=== PATIENT | male | born 1955 | race Caucasian/White ===

== ENCOUNTER 2021-08-11 08:15 | Emergency (ER) | payer OTHER, MEDICAID ==
[~2021-08-11] VITALS: Ht 180.3 cm; Wt 74.0 kg
[~2021-08-11 08:15] MED LIST: POTA20TA82 MT
[2021-08-11] MEDS ORDERED: ACETAMINOPHEN 325MG TABLET PO ONE (08:30)
[2021-08-11] MEDS ORDERED: HYDROCODONE/ACETAMINOPHEN 5/325MG TABLET PO ONE (09:00)
[2021-08-11] MEDS ORDERED: LIDOCAINE 5% PATCH TOP SCH (09:00)
[2021-08-11] MEDS ORDERED: DEXAMETHASONE 4MG TABLET PO ONE (09:00)
[2021-08-11] MEDS ORDERED: ACET-2708 MT (09:19)
[2021-08-11] MEDS ORDERED: BACL-141 MT (09:19)
[2021-08-11] MEDS ORDERED: LIDO700A15 TP (09:19)
[2021-08-11 10:14] VITALS: BP 120/86
== END 2021-08-11 10:57 | disposition home or self-care (01) ==
LOC: ER 08:15
DX: M76.01 Gluteal tendinitis, right hip (principal); Z13.9 Encounter for screening, unspecified
CPT/HCPCS: 99284; J8540

== ENCOUNTER 2023-05-08 15:40 | Inpatient (IN) | payer MEDICARE, MEDICAID ==
[~2023-05-08] VITALS: Ht 180.3 cm; Wt 73.5 kg
[2023-05-08 15:40] VITALS: BP 147/66; PULSE 52; RESP 18; TEMP 97.3
[~2023-05-08 15:40] MED LIST changes: +ACET-2708 MT; +BACL-141 MT; +LIDO700A15 TP; +POTA-204 MT; -POTA20TA82 MT
[2023-05-08 16:30] VITALS: BP 147/66; PULSE 52; RESP 18; TEMP 97.3
[2023-05-08] MEDS ORDERED: ACETAMINOPHEN 325MG TABLET PO PRN (17:30)
[2023-05-08] MEDS ORDERED: TRAMADOL 50MG TABLET PO PRN (17:30)
[2023-05-08 20:00] VITALS: BP 160/70; PULSE 59; RESP 17; TEMP 97.7
[2023-05-08] MEDS: CLONIDINE 0.1MG TABLET PO PRN (22:38)
[2023-05-09 07:25] LABS: HEMATOCRIT. 30.4 % (42.0-52.0); HEMOGLOBIN. 10.4 g/dL (14.0-18.0); MEAN CORPUSCULAR HEMOGLOBIN 33.8 pg (28.0-32.0); MEAN CORPUSCULAR HGB CONC 34.4 g/dL (31.0-37.0); MEAN CORPUSCULAR VOLUME 98.3 fL (80.0-94.0); PLATELET 226 x1000/uL (130-400); RED BLOOD CELL COUNT 3.09 mill/uL (4.7-6.1); RED CELL DISTRIBUTION WIDTH 15.3 % (11.6-14.6); WHITE BLOOD COUNT 10.6 x1000/uL (4.5-11.0)
[2023-05-09 07:41] LABS: DIFFERENTIAL COMMENT 1
[2023-05-09 08:00] VITALS: BP 156/76; PULSE 45; RESP 18; TEMP 97
[2023-05-09] MEDS: ENOXAPARIN 40MG/0.4ML SYR SUBCUT SCH (09:38)
[2023-05-09] MEDS: HYDROCODONE/ACETAMINOPHEN 5/325MG TABLET PO PRN (13:49)
[2023-05-09] MEDS ORDERED: NALOXONE HCL 0.4MG/ML VIAL IV PRN (16:45)
[2023-05-09 17:11] LABS: PLATELET ESTIMATE NORMAL
[2023-05-09 19:36] LABS: CHLORIDE 109 mEq/L (98-107); INDEX HEMOLYSI 1 (1-3); INDEX ICTERIC 1 (1-4); INDEX LIPEMIC 1 (1-3); POTASSIUM 3.8 mEq/L (3.5-5.1); SODIUM 142 mEq/L (136-145)
[2023-05-09 20:00] VITALS: BP 145/62; PULSE 55; RESP 18; TEMP 96.8
[2023-05-09 23:15] LABS: CALCIUM 7.9 mg/dL (8.5-10.1)
[2023-05-09 23:16] LABS: ALANINE AMINOTRANSFERASE 28 IU/L (13-61); ALBUMIN 2.6 g/dL (3.4-5.0); ASPARTATE AMINOTRANSFERASE 37 IU/L (15-37); BILIRUBIN TOTAL 0.9 mg/dL (0.1-1.0); CARBON DIOXIDE 22 mEq/L (21-32); CREATININE 0.7 mg/dL (0.6-1.3); GLUCOSE 82 mg/dL (70-105); PROTEIN TOTAL 5.6 g/dL (6.0-8.3); UREA NITROGEN BLOOD 19 mg/dL (7-21)
[2023-05-10 07:01] LABS: BASOPHILS % 0.1 % (0.0-2.0); EOSINOPHILS % 1.8 % (0.0-5.0); HEMATOCRIT. 36.1 % (42.0-52.0); HEMOGLOBIN. 12.6 g/dL (14.0-18.0); LYMPHOCYTES % 7.6 % (20.0-50.0); MEAN CORPUSCULAR HEMOGLOBIN 33.7 pg (28.0-32.0); MEAN CORPUSCULAR HGB CONC 34.8 g/dL (31.0-37.0); MEAN CORPUSCULAR VOLUME 96.8 fL (80.0-94.0); MONOCYTES % 5.9 % (2.0-8.0); NEUTROPHILS % 84.6 % (40.0-76.0); PLATELET 295 x1000/uL (130-400); RED BLOOD CELL COUNT 3.73 mill/uL (4.7-6.1); WHITE BLOOD COUNT 10.9 x1000/uL (4.5-11.0)
[2023-05-10 08:00] VITALS: BP 160/83; PULSE 50; RESP 18; TEMP 97
[2023-05-10 08:13] LABS: FERRITIN 189 ng/mL (22-322)
[2023-05-10] MEDS: ENOXAPARIN 40MG/0.4ML SYR SUBCUT SCH (08:33)
[2023-05-10 08:46] LABS: CHLORIDE 107 mEq/L (98-107); INDEX HEMOLYSI 1 (1-3); INDEX ICTERIC 1 (1-4); INDEX LIPEMIC 1 (1-3); POTASSIUM 3.9 mEq/L (3.5-5.1); SODIUM 138 mEq/L (136-145)
[2023-05-10 09:09] LABS: ALANINE AMINOTRANSFERASE 34 IU/L (13-61); ALBUMIN 3.1 g/dL (3.4-5.0); ASPARTATE AMINOTRANSFERASE 30 IU/L (15-37); BILIRUBIN TOTAL 1.7 mg/dL (0.1-1.0); CALCIUM 8.3 mg/dL (8.5-10.1); CARBON DIOXIDE 24 mEq/L (21-32); CREATININE 0.6 mg/dL (0.6-1.3); GLUCOSE 96 mg/dL (70-105); IRON 64 ug/dL (50-175); PROTEIN TOTAL 6.8 g/dL (6.0-8.3); TOTAL IRON BINDING CAPACITY 285 ug/dL (250-450); UREA NITROGEN BLOOD 13 mg/dL (7-21)
[2023-05-10 09:17] LABS: INDEX HEMOLYSI 1 (1-3)
[2023-05-10 09:49] LABS: FOLIC ACID (FOLATE) SERUM >20 ng/mL ng/mL (>5.38); VITAMIN B12 SERUM 882 pg/mL (211-911)
[2023-05-10] MEDS: HYDROCODONE/ACETAMINOPHEN 5/325MG TABLET PO PRN (09:54)
[2023-05-10] MEDS: HYDROCODONE/ACETAMINOPHEN 10/325MG TABLET PO PRN (14:18)
[2023-05-10] MEDS: THIAMINE HCL 100MG TABLET PO SCH (14:18)
[2023-05-10] MEDS: FOLIC ACID 1MG TABLET PO SCH (14:18)
[2023-05-10 20:00] VITALS: BP 138/81; PULSE 62; RESP 17; TEMP 95.5
[2023-05-11 08:00] VITALS: BP 172/71; PULSE 64; RESP 18; TEMP 97.5
[2023-05-11] MEDS: ENOXAPARIN 40MG/0.4ML SYR SUBCUT SCH (09:04)
[2023-05-11] MEDS: HYDROCODONE/ACETAMINOPHEN 10/325MG TABLET PO PRN (09:04)
[2023-05-11] MEDS: THIAMINE HCL 100MG TABLET PO SCH (09:04)
[2023-05-11] MEDS: FOLIC ACID 1MG TABLET PO SCH (09:04)
[2023-05-11] MEDS ORDERED: ERGOCALCIFEROL 50000UNITS CAPSULE PO SCH (11:02)
[2023-05-11 20:00] VITALS: BP 164/69; PULSE 61; RESP 18; TEMP 97
[2023-05-12 08:00] VITALS: BP 170/82; PULSE 68; RESP 20; TEMP 97.4
[2023-05-12] MEDS: FOLIC ACID 1MG TABLET PO SCH (10:35)
[2023-05-12] MEDS: THIAMINE HCL 100MG TABLET PO SCH (10:35)
[2023-05-12] MEDS: ENOXAPARIN 40MG/0.4ML SYR SUBCUT SCH (10:36)
[2023-05-12] MEDS ORDERED: HYDROCODONE/ACETAMINOPHEN 10/325MG TABLET PO PRN (11:00)
[2023-05-12] MEDS ORDERED: NALOXONE HCL 0.4MG/ML VIAL IV PRN (11:15)
[2023-05-12 12:00] VITALS: BP 150/75; PULSE 56; RESP 18; TEMP 97
[2023-05-12 16:00] VITALS: BP 158/80; PULSE 60; RESP 20; TEMP 96.6
[2023-05-12 20:00] VITALS: BP 173/73; PULSE 45; RESP 18; TEMP 98.7
[2023-05-12] MEDS: CLONIDINE 0.1MG TABLET PO PRN (20:17)
[2023-05-12 21:10] VITALS: BP 158/76
[2023-05-13 08:00] VITALS: BP 158/83; PULSE 51; RESP 20; TEMP 97.7
[2023-05-13] MEDS: FOLIC ACID 1MG TABLET PO SCH (09:19)
[2023-05-13] MEDS: THIAMINE HCL 100MG TABLET PO SCH (09:20)
[2023-05-13] MEDS: ENOXAPARIN 40MG/0.4ML SYR SUBCUT SCH (09:20)
[2023-05-13 20:00] VITALS: BP 146/80; PULSE 64; RESP 18; TEMP 98.4
== END 2023-05-14 07:45 | DRG 535 ==
PROVIDERS: ADMIT Physical Medicine & Rehabilitation Spinal Cord Injury Medicine; ATTEND Hospitalist
PROC: 5A12012 Performance of Cardiac Output, Single, Manual (ICD-10-PCS; principal; 2023-05-14)
DX: S72.142A Displaced intertrochanteric fracture of left femur, initial encounter for closed fracture (principal); E43 Unspecified severe protein-calorie malnutrition; R26.9 Unspecified abnormalities of gait and mobility; W18.39XA Other fall on same level, initial encounter; I10 Essential (primary) hypertension; D72.829 Elevated white blood cell count, unspecified; D63.8 Anemia in other chronic diseases classified elsewhere; R53.81 Other malaise; E55.9 Vitamin D deficiency, unspecified; G89.4 Chronic pain syndrome; R73.9 Hyperglycemia, unspecified; I46.9 Cardiac arrest, cause unspecified; Y93.89 Activity, other specified; Y92.89 Other specified places as the place of occurrence of the external cause; Z91.81 History of falling; Y99.8 Other external cause status; Z82.49 Family history of ischemic heart disease and other diseases of the circulatory system; Z68.22 Body mass index [BMI] 22.0-22.9, adult
CPT/HCPCS: 36415; 80053; 82306; 82607; 82728; 82746; 82962; 83036; 83540; 83550; 84134; 84153; 84443; 85025; 92950; 97110; 97116; 97162; 97166; 97530; 97535; J1650; G0103